=== PATIENT | female | born 1945 | race Caucasian/White ===

== ENCOUNTER 2016-08-22 18:08 | Inpatient (IN) | payer OTHER ==
[~2016-08-22] VITALS: Ht 152.4 cm; Wt 69.4 kg
--- NOTE | 2016-08-22 18:08 | NUR ---
Patient was BIBA and taken to bed 03 via gurney per EMS.
[2016-08-22 18:12] VITALS: BP 154/84
--- NOTE | 2016-08-22 18:14 | NUR ---
71F BIBA FROM [facility] C/O SUICIDAL IDEATION X TODAY; PT PLACED ON 5150 HOLD BY [facility] FOR SUICIDAL IDEATION; PT STATES " I'M IN SO MUCH PAIN, I WANT TO BANG MY HEAD AND KILL MYSELF"; PT C/O ACHING ABDOMINAL PAIN, NON-RADIATING, /10 X 8 DAYS; PT STATES HAS N/V/D X 4 DAYS; ABDOMEN SOFT, NON-TENDER, ACTIVE BOWEL SOUNDS X 4 QUADRANTS; PT STATES RAN OUT OF FENT[place] X 8 DAYS AGO; A&OX3, PERRLA, BL LUNG SOUNDS CLEAR, RR EVEN/UNLABORED, SKIN IS WARM/DRY/INTACT; PT NOTED W/ PURPLE DISCOLORATION TO RT ARM FROM OLD FALL; DENIES PAIN TO SITE; PT PLACED ON MONITOR, RESTING IN BED W/ HOB ELEVATED AND IN LOWEST POSITION; POSITIONED FOR COMFORT; ER MD MADE AWARE OF STATUS. WILL CONTINUE TO MONITOR.
[2016-08-22] MEDS ORDERED: SYNTHROID0.15 MG PO (18:26)
[2016-08-22] MEDS ORDERED: LOSARTAN POTASS50 MG PO (18:26)
[2016-08-22] MEDS ORDERED: ULTRAM50 MG PO (18:26)
[2016-08-22] MEDS ORDERED: CATAPRES0.1 MG PO (18:26)
[2016-08-22] MEDS ORDERED: ESOMEPRAZOLE MA40 M1 PO (18:26)
[2016-08-22] MEDS ORDERED: AMBIEN10 MG PO (18:26)
--- NOTE | 2016-08-22 18:45 | NUR ---
BL UPPER EXTREMITY RESTRAINTS APPLIED PER ER MD DR. LOYA ORDER; PT NOTED BANGING HEAD TO BED; BL RADIAL PULSES PALPABLE, BL CAP REFILLS < 3 SECONDS, NO LOSS OF ROM TO BL UPPER EXTREMITIES, NO LOSS OF SENSATION TO BL UPPER EXTREMITES AT THIS TIME; WILL CONTINUE TO MONITOR.
--- NOTE | 2016-08-22 19:11 | NUR ---
Pt report given to RACHEL LAURA. Transfer of care at this time.
[2016-08-22] MEDS ORDERED: diphenhydrAMINE 50 MG/ML VIAL IM ONE (19:15)
--- NOTE | 2016-08-22 20:00 | NUR ---
Patient appears to be resting comfortably in bed. Vital Signs within normal limits. Respirations even and unlabored.; BL RADIAL PULSES PALPABLE, BL CAP REFILLS < 3 SECONDS, NO LOSS OF ROM TO BL UPPER EXTREMITIES, NO LOSS OF SENSATION TO BL UPPER EXTREMITES AT THIS TIME; WILL CONTINUE TO MONITOR.
--- NOTE | 2016-08-22 21:30 | NUR ---
RESTRAINTS REMOVED, SKIN INTACT, PT CALM AND EXPLAINED REASONS FOR RESTRAINTS. PT UNDERSTANDS AND IS COOPERATIVE. ER MD DR JACKSON AWARE
--- NOTE | 2016-08-22 22:02 | NUR ---
Patient appears to be resting comfortably in bed. Vital Signs within normal limits. Respirations even and unlabored. PT SHOWS NO SIGNS OF DISTRESS, IS COOPERATIVE AND CALM AT THE MOMENT
[2016-08-23] MEDS ORDERED: diphenhydrAMINE 50 MG/ML VIAL IM ONE (02:00)
--- NOTE | 2016-08-23 02:03 | NUR ---
Patient appears to be resting comfortably in bed. Vital Signs within normal limits. Respirations even and unlabored. PT SHOWS NO SIGNS OF DISTRESS AT THE MOMENT
--- NOTE | 2016-08-23 02:39 | NUR ---
SPOKE TO [facility]- GAVE REPORT TO DEBRA, THEY WILL CALL BACK, AFTER BENADRYL HAS WORN OFF TO SEE HOW PT IS BEHAVING. DEBRA STATES BC WE JUST ADMINISTERED BENADRYL, THEY WILL HAVE TO WAIT TO SEE HER BEHAVIOR ONCE THE MEDICATION HAS WORN OFF.
--- NOTE | 2016-08-23 03:01 | NUR ---
Patient appears to be resting comfortably in bed. Vital Signs within normal limits. Respirations even and unlabored.
--- NOTE | 2016-08-23 04:07 | NUR ---
Patient appears to be resting comfortably in bed. Vital Signs within normal limits. Respirations even and unlabored. PT SHOWS NO SIGNS OF DISTRESS AT THE MOMENT
[2016-08-23] MEDS ORDERED: LORazepam 2 MG/ML VIAL IM ONE (04:35)
--- NOTE | 2016-08-23 05:04 | NUR ---
Patient appears to be resting comfortably in bed. Vital Signs within normal limits. Respirations even and unlabored. PT SHOWS NO SIGNS OF DISTRESS AT THE MOMENT
--- NOTE | 2016-08-23 05:59 | NUR ---
Note undone in EDM - 08/23/16 at 0612 by KIMANI SPOKE TO [facility]- [phone]-SPOKE TO DEBRA AGAIN, STATED THE SAME RESPONSE EARLIER, THEY WANT TO SEE PT BEHAVIOR OFF MEDICATION OF ANY TYPE. I TOLD DEBRA, PT WAS AGITATED SO ER DOCTOR PRESCRIBED ATIVAN IM. I WENT ON TO ALSO STATE THAT ANY PT WHO HAS BEEN ON PAIN MEDS FOR AN EXTENDED PERIOD OF TIME WITH BE AGITATED WITHHOLDING APPROPRIATE MEDICATIONS SIMPLY TO THEIR ASSESSMENT IS NOT SOMETHING OUR ER DOCTOR WILL DO, IF THE PT IS CONTINUOUSLY COMPLAINING AND IS AGITATED, THUS CAUSING THE PT MORE HARM THEN GOOD. I DID STATE TO DEBRA THAT HER HEALTH RISK OF POTENTIAL SEIZURE OR SELFHARM WAS WHAT WE TOOK IN CONSIDERATION WHEN ADMINISTERING THE ATIVAN AND BENADRYL. I ALSO STATED THAT THOUGH SHE C/O PAIN, THE TX OUR ER DOCTOR PRESCRIBED WAS HELPFUL EACH TIME ALLOWING THE PT TO REST/SLEEP COMFORTABLY WITHOUT ANY SIGNS OF DISTRESS. WHICH WAS 2 DOSE OF BENADRYL, EACH 6 HOURS APART AND 1 DOSE OF ATIVAN IM. I DID ALSO ENDORSE TO DEBRA THAT WHEN PT WAS GIVEN MEDICATION SHE WAS CALM AND COOPERATIVE WITH ER STAFF. RESTRAINTS WERE ONLY ON FOR 3 HOURS OR LESS AND OF THE 9 HOURS SHE HAS BEEN HERE, THERE HAS BEEN WITH NO SIGNS OF SELF INFLICTING HARM TO HERSELF ONCE SHE WAS MEDICATED.
--- NOTE | 2016-08-23 05:59 | NUR ---
SPOKE TO [facility]- [phone]-SPOKE TO DEBRA AGAIN, STATED THE SAME RESPONSE EARLIER, THEY WANT TO SEE PT BEHAVIOR OFF MEDICATION OF ANY TYPE. I TOLD DEBRA, PT WAS AGITATED SO ER DOCTOR PRESCRIBED ATIVAN IM. I WENT ON TO ALSO STATE THAT ANY PT WHO HAS BEEN ON PAIN MEDS FOR AN EXTENDED PERIOD OF TIME WILL BE AGITATED; WITHHOLDING APPROPRIATE MEDICATIONS SIMPLY TO THEIR ASSESSMENT IS NOT SOMETHING OUR ER DOCTOR WILL DO, IF THE PT IS CONTINUOUSLY COMPLAINING AND IS AGITATED, THUS CAUSING THE PT MORE HARM THEN GOOD. I DID STATE TO DEBRA THAT HER HEALTH RISK OF POTENTIAL SEIZURE OR SELFHARM WAS WHAT WE TOOK IN CONSIDERATION WHEN ADMINISTERING THE ATIVAN AND BENADRYL. I ALSO STATED THAT THOUGH SHE C/O PAIN, THE TX OUR ER DOCTOR PRESCRIBED WAS HELPFUL EACH TIME ALLOWING THE PT TO REST/SLEEP COMFORTABLY WITHOUT ANY SIGNS OF DISTRESS( WHICH WAS 2 DOSE OF BENADRYL, EACH 6 HOURS APART AND 1 DOSE OF ATIVAN IM.) I DID ALSO ENDORSE TO DEBRA THAT WHEN PT WAS GIVEN MEDICATION SHE WAS CALM AND COOPERATIVE WITH ER STAFF. RESTRAINTS WERE ONLY ON FOR 3 HOURS OR LESS AND OF THE 9 HOURS OF HER STAY AT [facility], THERE HAS BEEN WITH NO SIGNS OF SELF INFLICTING HARM TO HERSELF ONCE SHE WAS MEDICATED. DEBRA SAID THE DAY SHIFT WILL CALL BACK FOR FURTHER ASSESSMENT.
[2016-08-23] MEDS ORDERED: HYDROcodone/APAP 5/325 MG 1 TAB TAB PO PRN (07:00)
[2016-08-23] MEDS ORDERED: ACETAMINOPHEN 325 MG TAB PO PRN (07:00)
[2016-08-23] MEDS ORDERED: ZOLPIDEM 5 MG TAB PO PRN (07:00)
[2016-08-23] MEDS ORDERED: DEXT 5% /NACL 0.9% 1,000 ML IV SCH (07:00)
[2016-08-23] MEDS ORDERED: LORazepam 2 MG/ML VIAL IVP PRN (07:00)
--- NOTE | 2016-08-23 07:10 | NUR ---
Pt report given to SERA RAMOS . Transfer of care at this time.
--- NOTE | 2016-08-23 07:40 | NUR ---
SALESPERSON FLYING SQUAD ERLY NOT READY TO TAKE REPORT AT THIS TIME WILL CALL BACK IN 10 MINUTES PER SALESPERSON FLYING SQUAD
[2016-08-23] MEDS ORDERED: PANTOPRAZOLE 40 MG TABEC PO SCH (07:52)
[2016-08-23] MEDS ORDERED: LEVOTHYROXINE 0.075 MG TAB PO SCH (08:00)
--- NOTE | 2016-08-23 08:18 | NUR ---
Patient will be admitted to care of DR MAN. Admited to ICU. Will go to room 6. Belongings list completed. Report to RACHEL SERRANO.
[2016-08-23 08:30] VITALS: BP 143/96
--- NOTE | 2016-08-23 08:30 | NUR ---
ADMITTED A 71 YO FEMALE FROM ER WITH DX OF SUICIDAL IDEATION ON 5150.PT VERBALIZED SUICIDAL THOUGHTS.LEFT HAND SALINE LOCK FLUSHABLE.PLACED ON THE MONITOR.SUICIDE PRECAUTION.
[2016-08-23] MEDS ORDERED: ESOMEPRAZOLE MAGNESIUM 40 MG PO SCH (09:00)
[2016-08-23] MEDS ORDERED: cloNIDine 0.1 MG TAB PO SCH (09:00)
[2016-08-23] MEDS ORDERED: LOSARTAN 50 MG TAB PO SCH (09:00)
[2016-08-23] MEDS ORDERED: traMADol 50 MG TAB PO SCH (09:00)
[2016-08-23 10:00] VITALS: BP 143/96
--- NOTE | 2016-08-23 10:10 | NUR ---
PATIENT HAS BEEN SCREENED AND CATEGORIZED HIGH NUTRITION RISK. PATIENT WILL BE SEEN WITHIN 1-2 DAYS OF ADMISSION. 08/24/16-08/25/[address]
[2016-08-23 12:00] VITALS: BP 151/99
--- NOTE | 2016-08-23 12:00 | NUR ---
PT REFUSED SCD .DR MAN AWARE.
[2016-08-23] MEDS ORDERED: LORazepam 2 MG/ML VIAL IVP SCH (12:19)
--- NOTE | 2016-08-23 13:05 | NUR ---
TALKED TO DR BLAND AND NOTIFIED ABOUT THE CONSULT AND PER MD WILL SEE PT LATER .ZAIRA PARK AWARE.
--- NOTE | 2016-08-23 14:00 | NUR ---
DR LICO FOSTER WAS NOTIFIED ABOUT CONSULT AND DR JONES WILL MAKE ROUNDS.
--- NOTE | 2016-08-23 14:50 | NUR ---
SPOKE TO DR JONES ON CONSULT.
--- NOTE | 2016-08-23 14:55 | NUR ---
SS NOTE: SENT PSYCH PLACEMENT INQUIRES TO [facility] AND [facility] I SPOKE WITH ROBBIE FROM [facility]. SHE STATED THAT THEY RECEIVED PT'S INFORMATION AND IT NEEDS TO BE REVIEWED BY HER INVESTIGATION OFFICER. I RECEIVED A CALL FROM AMY AT [facility] ([phone]). HE STATED THAT HE RECEIVED PT'S INFORMATION AND WILL HER THEIR VICE PRESIDENT OF MANUFACTURING REVIEW IT.
--- NOTE | 2016-08-23 15:00 | NUR ---
REPORT GIVEN TO YOUNG
--- NOTE | 2016-08-23 15:10 | NUR ---
RECEIVED PATIENT FROM SALES AND MARKETING PROFESSIONALRACHEL SERRANO FOR CONTINUITY OF CARE. PATIENT AWAKE ALERT AND ORIENTED X3 NO S/S OF REP DISTRESS NOTED NO COMPLAIN OF PAIN PATIENT STILL HAS SUICIDAL IDEATION . ONE TO ONE SITTER FOR SAFETY. IV SITE ON LEFT HAND GAUGE 20 INTACT AND PATIENT IVF INFUSING WELL. PLAN OF CARE DISCUSSED WITH THE PATIENT VITALS STABLE WILL CONTINUE TO MONITOR.
--- NOTE | 2016-08-23 15:44 | NUR ---
SS NOTE: PER ROBBIE FROM [facility] ([phone]), PT CAN GO TO ROOM [address] UNDER DR. MARTINEZ. SHE ALSO STATED THAT THE ASSIGNED RN WILL NEED TO CALL FOR REPORT. HEATER MECHANIC NATALIE RIZVI.
[2016-08-23 16:00] VITALS: BP 140/86
--- NOTE | 2016-08-23 16:48 | NUR ---
NOTIFIED DR. MARTINEZ REGARDING PATIENT TRANSFERRING TO [facility] AND MADE AWARE.
[2016-08-23 17:32] VITALS: BP 140/81
--- NOTE | 2016-08-23 17:56 | NUR ---
PATIENT HAND DISCHARGE ORDER TO GO TO [facility] , REPORT GIVEN TO NAVDEEP RAMOS . REMOVED IV , VITALS STABLE AT THIS TIME.
--- NOTE | 2016-08-23 18:51 | NUR ---
SPOKE TO OFFICER Irena HINES AND HE SAID HE WILL COME AND WRITE A NEW HOLD FOR THE PATIENT.
--- NOTE | 2016-08-23 19:40 | NUR ---
RECEIVED REPORT ON PT FROM AM NURSEYOUNG. AWAKE,ALERT AND ORIENTED , AGITATED. PT FOR TRANSFER TO [facility]. AWAITING FOR ORDER. SITTER AT BEDSIDE. NO IV ACCESS. TRANSPORT TO COME BACK AND ROTARY SHEAR WORKER HELPER PT SOON READY. WILL CONTINUE TO MONITOR.
[2016-08-23] MEDS ORDERED: LORazepam 2 MG/ML VIAL IM/IVP PRN (19:45)
--- NOTE | 2016-08-23 19:54 | NUR ---
PT VERY AGITATED. WITH ATIVAN 2 MG IM ONCE ORDERED, GIVEN.
--- NOTE | 2016-08-23 20:10 | NUR ---
PICKED UP BY TRANSPORTER FOR TRANSFER TO [facility] ROOM 54A IN STABLE CONDITION.
[2016-08-24] MEDS ORDERED: LEVOTHYROXINE 0.075 MG TAB PO SCH (06:30)
[2016-08-24] MEDS ORDERED: PANTOPRAZOLE 40 MG TABEC PO SCH (07:30)
== END 2016-08-23 20:15 | DRG 885 ==
LOC: MED 18:08 → MIC 08-23 07:04 → MTU 08-23 15:28
PROVIDERS: ADMIT Preventive Medicine Preventive Medicine/Occupational Environmental Medicine; ATTEND Preventive Medicine Preventive Medicine/Occupational Environmental Medicine
DX: F23 Brief psychotic disorder (principal); N17.9 Acute kidney failure, unspecified; E44.0 Moderate protein-calorie malnutrition; R45.851 Suicidal ideations; E03.9 Hypothyroidism, unspecified; I12.9 Hypertensive chronic kidney disease with stage 1 through stage 4 chronic kidney disease, or unspecified chronic kidney disease; N18.9 Chronic kidney disease, unspecified; F31.9 Bipolar disorder, unspecified; E11.22 Type 2 diabetes mellitus with diabetic chronic kidney disease; G89.4 Chronic pain syndrome; Z85.00 Personal history of malignant neoplasm of unspecified digestive organ; Z88.1 Allergy status to other antibiotic agents; Z79.899 Other long term (current) drug therapy; Z68.29 Body mass index [BMI] 29.0-29.9, adult